=== PATIENT | male | born 1945 | race Caucasian/White ===

== ENCOUNTER 2018-11-13 13:33 | Emergency (ER) | payer OTHER ==
[~2018-11-13] VITALS: Ht 177.8 cm; Wt 108.4 kg
--- NOTE | 2018-11-13 13:45 | NUR ---
pt BIB [facility] c/o laceration to forehead and pain to nose R hand and R anterior thigh after a fall [employer] A[employer]LY[employer]. pt was walking at an estate sale and fell on the landing at the top of the stairs. did not fall down the stairs. no LOC. bleeding to forehead controlled by bandage. pt has an injury to the bridge of his nose. abrasion to R elbow. no wound or bruising or swelling noted to R thigh. pt is alert and talking. reports some pain. no dizzines no nausea. no loss or change of vision. pt is on 3L of O2 via NC which is his basleline. has been to bedside for gloria
[2018-11-13] MEDS ORDERED: PLEASE ENTER ALLERGIES MC SCH (14:00)
[2018-11-13] MEDS ORDERED: PLEASE ENTER HEIGHT AND WEIGHT MC SCH (14:00)
[2018-11-13] MEDS ORDERED: LIDOCAINE-MPF 1%, 5ML INFIL ONE (14:00)
--- NOTE | 2018-11-13 14:06 | NUR ---
bandage has been removed. bleeding controlled at this time. pt to CT scan
--- NOTE | 2018-11-13 14:07 | NUR ---
per report, pt takes daily ASA, nitro as needed, pro-air and suboxone. he is not aware of the dosages. pt is on 3L NC at baseline
--- NOTE | 2018-11-13 14:22 | NUR ---
pt still in [place]. report to Diana WHYTE
[2018-11-13] MEDS ORDERED: L.E.T SOLUTION TP ONE (14:30)
[2018-11-13] MEDS ORDERED: LIDOCAINE-MPF 1%, 5ML ONE (14:48)
--- NOTE | 2018-11-13 14:58 | NUR ---
PA IN TO SUTURE PT.
[2018-11-13] MEDS ORDERED: NEOSPORIN OINT. PKT 1 PACKET ONE (15:13)
[2018-11-13 16:17] VITALS: BP 124/61
== END 2018-11-13 16:32 | disposition home or self-care (01) ==
LOC: ED 16:25
DX: S01.81XA Laceration without foreign body of other part of head, initial encounter (principal); J44.9 Chronic obstructive pulmonary disease, unspecified; I10 Essential (primary) hypertension; W10.9XXA Fall (on) (from) unspecified stairs and steps, initial encounter; Y93.89 Activity, other specified; Y92.009 Unspecified place in unspecified non-institutional (private) residence as the place of occurrence of the external cause; Y99.8 Other external cause status
CPT/HCPCS: 12014; 70450; 70486; 72125; 99284